=== PATIENT | male | born 1960 | race Caucasian/White ===

== ENCOUNTER 2017-11-06 09:56 | Outpatient (CLI) | payer OTHER ==
[2015-07-04 07:42] VITALS: BMI 20.3
== END 2017-11-06 10:12 | disposition hospice, home (50) ==
LOC: AMBL 09:56
PROVIDERS: ATTEND Family Medicine
DX: J44.9 Chronic obstructive pulmonary disease, unspecified (principal); Z99.81 Dependence on supplemental oxygen